=== PATIENT | female | born 1985 | race Caucasian/White ===

== ENCOUNTER 2023-06-21 20:05 | Emergency (ER) | payer BC, SELFPAY ==
[2023-06-21 20:15] VITALS: BP 153/88
--- NOTE | 2023-06-21 20:44 | ED.GENMED ---
History of Present Illness
General
Chief Complaint: Skin Problem
Source: patient
Time Seen by Provider: 06/21/23 20:35
Travel History
Have you had any contact with someone who has COVID-19?: No
Do you have any symptoms of coronavirus? Fever > 100 degrees, chills, cough, shortness of breath, sore throat, loss of taste or smell, muscle aches, or headache?: No
History of Present Illness
History of Present Illness:
38-year-old female with past medical history of hypertension presented emergency department for evaluation after she excellently cut the tip of her right middle finger on a mandolin while slicing cucumbers earlier this evening. Patient is
right-hand dominant, tetanus is up-to-date and no other injuries were sustained.
Past History
Past History
ED Past Medical History: HTN
ED Past Surgical History: None
Social History
Tobacco: Smoker
Alcohol: Occasional
Drug: None
Personal: Single
Living: with roommate
Employment: Employed
Review of Systems
Review of Systems
All Other Systems: ROS reviewed and negative except as documented in HPI and ROS
Phy Exam
Physical Exam
Physical Exam:
GENERAL: Alert , in no apparent distress
EYE: conjunctiva clear
Head: Normocephalic atraumatic
NECK: Supple,
ENT: mmm.
LUNGS: no acute respiratory distress
NEUROLOGICAL: Alert and oriented
SKIN: Warm and dry, skin avulsion to the tip of the right middle finger, oval-shaped, 8 mm in total size, mild oozing
MUSCULOSKELETAL: well perfused.
PSYCH: Normal and appropriate interaction.
Scores
Heart Failure Risk
Heart Failure Risk Score: Not Applicable
Heart Score for Chest Pain Patients
STEMI patient?: Not applicable
Withdrawal Assessment of Alcohol
Withdrawal Assessment Completed?: Not applicable
Course
Vital Signs
Initial and Last Documented VS:
Initial Vital Signs
Temp Pulse Resp BP Pulse Ox
98.1 F 70 18 153/88 98
06/21/23 20:15 06/21/23 20:15 06/21/23 20:15 06/21/23 20:15 06/21/23 20:15
Last Documented Vital Signs
Temp Pulse Resp BP Pulse Ox
98.1 F 70 18 153/88 98
06/21/23 20:15 06/21/23 20:15 06/21/23 20:15 06/21/23 20:15 06/21/23 20:15
MDM/Problems Addressed
MDM/Problems Addressed:
38-year-old female present emergency department for evaluation of a avulsion laceration of the right middle finger. Laceration was irrigated with saline and Betadine. Patient had Gelfoam placed and finger wrapped. Advised on wound care.
Motrin/Tylenol as needed for pain. Otherwise stable for discharge home.
*Pulse Oximetry
Patient hypoxic: no
*Critical Care Note
Total Time (30-74mins, 75-104mins- exclusive of procedures): Not Applicable
ED Attending Note
-
Portions of this chart may have been created with voice recognition software.� Occasional wrong word or��sound alike� substitutions may have occurred due to the inherent limitations of voice recognition software.
Discharge Plan
Departure
Patient Disposition: Home (Routine Discharge)
Date of Disposition: 06/21/23
Time of Disposition: 20:44
Patient with high blood pressure during this ER visit?: No
Discharge Problem:
Laceration of right middle finger w/o foreign body w/o damage to nail
Instructions: Wound Care (DC)
Prescriptions:
No Action
hydrochlorothiazide 25 mg Tablet
25 mg PO DAILY
cyclobenzaprine 5 mg tablet
5 mg PO HS PRN (Reason: muscle spasm) Qty: 14 0RF
doxycycline hyclate 100 mg capsule
100 mg PO BID Qty: 14 0RF
Stand Alone Forms: Return to Work
Interventions
Interventions:
*Risk Screen - Suicide Last Done: 06/21/23 20:15
*General Assessment Last Done: 06/21/23 20:15
*Neglect/Abuse Screening Last Done: 06/21/23 20:15
ED- Fall Risk Assessment Last Done: 06/21/23 20:19
*ED COVID-19 Vaccine History Last Done: 06/21/23 20:19
*Nursing Disposition Last Done: 06/21/23 21:00
ED-Skin Assessment Last Done: 06/21/23 20:53
Discharge Date and Time
Discharge Date/Time: 06/21/23 21:00
Print Language: [id number]
== END 2023-06-21 21:00 | disposition home or self-care (01) ==
LOC: EMR 20:05
PROVIDERS: EMERGENCY PHYSICIAN Emergency Medicine
DX: S61.212A Laceration without foreign body of right middle finger without damage to nail, initial encounter (principal); W27.4XXA Contact with kitchen utensil, initial encounter; Y93.G1 Activity, food preparation and clean up; I10 Essential (primary) hypertension; F17.200 Nicotine dependence, unspecified, uncomplicated
CPT/HCPCS: 99282